=== PATIENT | male | born 1975 | race Hispanic/Latino ===

== ENCOUNTER 2017-10-23 17:36 | Emergency (ER) | payer BC ==
[2017-10-23] MEDS ORDERED: NACL 0.9% 1000 ML 1,000 ML IV ONE ×2 (18:22)
[2017-10-23] MEDS ORDERED: NACL 0.9% 1000 ML 2,000 ML ONE (18:22)
[2017-10-23] MEDS ORDERED: ZOFRAN IV ONE (18:24)
--- NOTE | 2017-10-23 18:37 | Emergency Department Report ---
HPI - General Time Seen by Provider: 10/23/17 18:16 - HPI HPI: Room 21 The patient is a 42-year-old male presenting with a chief complaint of altered mental status. Per nursing there is no EMS run sheet were reviewed. Nursing states that the patient was found "like this" (decreased responsiveness) at his java core developer's office. There is a half empty bottle of vodka that accompanied the patient. The patient has a bottle of Abilify that was filled today but only missing two 5 mg pills. Patient opens his eyes and makes eye contact with tactile stimuli but does not speak. Patient immediately goes back to sleep Location: Mental status Duration: Unknown Quality: Decreased responsiveness Severity: Moderate Modifying factors: [see above] Context: [see above] Mode of transportation: [not driving] ED Past Medical Hx - Family History Family history: no significant - Social History Smoking Status: Unknown if ever smoked Substance Use Type: Alcohol - Medications Home Medications: Home Medications Medication Instructions Recorded Confirmed Last Taken Type ARIPiprazole [Abilify TAB] 5 mg PO DAILY 10/23/17 10/23/17 Unknown History Gabapentin [Neurontin] 300 mg PO Q8HR 10/23/17 10/23/17 Unknown History Ibuprofen [Motrin 800 MG tab] 800 mg PO Q8HR PRN #20 tablet 10/23/17 Unknown Rx hydrOXYzine PAMOATE [Vistaril] 50 mg PO Q6HR PRN #20 capsule 10/23/17 Unknown Rx ED Review of Systems ROS: Stated complaint: ETOH Other details as noted in HPI Comment: Unobtainable due to pts medical conditions Physical Exam - Physical Exam Physical Exam: GENERAL: The patient is well-developed well-nourished male lying on stretcher not appearing to be in acute distress. Patient has decreased responsiveness but makes eye contact with tactile stimuli HEENT: Normocephalic. Atraumatic. Extraocular motions are intact. Patient has moist mucous membranes. Pupils 3-2 mm bilaterally NECK: Supple. Trachea midline CHEST/LUNGS: Clear to auscultation. There is no respiratory distress noted. HEART/CARDIOVASCULAR: Regular. There is no tachycardia. There is no gallop rub or murmur. ABDOMEN: Abdomen is soft, nontender. Patient has normal bowel sounds. There is no abdominal distention. SKIN: There is no rash. There is no edema. There is no diaphoresis. NEURO: The patient exhibits decreased responsiveness. With sternal rub the patient opens his eyes and makes eye contact but does not respond verbally. Patient then immediately goes back to sleep with both arms folded behind his head. MUSCULOSKELETAL: There is no evidence of acute injury. ED Course - Reevaluation(s) Reevaluation #1: 10/23/17 20:49 Patient more awake at this point and response to verbal stimuli. Patient states he does not recall how he got to the emergency department. The patient was reminded he was sent from an ip attorney's office and again the patient is amnestic to the event. The patient now complains of upper back pain with pleurisy. At this time I will order a CT angiogram of the chest to rule out PE 10/23/17 22:58 Discussed with patient the need to follow-up with a medical field representative for further evaluation of his pulmonary nodules. I explained that this may be sales representative advertising of cancer and should not be ignored. Patient verbalized understanding ED Medical Decision Making - Lab Data Result diagrams: 10/23/17 18:31 10/23/17 18:31 Laboratory Tests 10/23/17 10/23/17 10/23/17 18:31 18:31 18:31 WBC 7.6 RBC 4.66 Hgb 13.7 Hct 40.8 MCV 88 MCH 29 MCHC 34 RDW 13.1 L Plt Count 235 Lymph % (Auto) 17.9 [place] % (Auto) 8.3 H Eos % (Auto) 5.0 H Baso % (Auto) 0.6 Lymph # 1.4 [place] # 0.6 Eos # 0.4 Baso # 0.0 Seg Neutrophils % 68.2 Seg Neutrophils # 5.2 PT 13.2 INR 0.95 APTT 27.9 Sodium 141 Potassium 3.6 Chloride 102.2 Carbon Dioxide 23 Anion Gap 19 BUN 6 L Creatinine 0.8 Estimated GFR > 60 BUN/Creatinine Ratio 8 Glucose 105 H Calcium 8.0 L Total Bilirubin 0.30 AST 74 H ALT 62 H Alkaline Phosphatase 106 Ammonia Total Creatine Kinase 53 L CK-MB (CK-2) < 1.0 CK-MB (CK-2) Rel Index 1.8 Troponin T < 0.010 Total Protein 6.8 Albumin 3.4 L Albumin/Globulin Ratio 1.0 Urine Color Urine Turbidity Urine pH Ur Specific [place] Urine Protein Urine Glucose (UA) Urine Ketones Urine Blood Urine Nitrite Urine Bilirubin Urine Urobilinogen Ur Leukocyte Esterase Urine WBC (Auto) Urine RBC (Auto) Salicylates Urine Opiates Screen Urine Methadone Screen Acetaminophen Ur Barbiturates Screen Ur Phencyclidine Scrn Ur Amphetamines Screen U Benzodiazepines Scrn Urine Cocaine Screen U Marijuana (THC) Screen Drugs of Abuse Note Plasma/Serum Alcohol 10/23/17 10/23/17 10/23/17 18:31 18:31 18:39 WBC RBC Hgb Hct MCV MCH MCHC RDW Plt Count Lymph % (Auto) [place] % (Auto) Eos % (Auto) Baso % (Auto) Lymph # [place] # Eos # Baso # Seg Neutrophils % Seg Neutrophils # PT INR APTT Sodium Potassium Chloride Carbon Dioxide Anion Gap BUN Creatinine Estimated GFR BUN/Creatinine Ratio Glucose Calcium Total Bilirubin AST ALT Alkaline Phosphatase Ammonia 56.0 Total Creatine Kinase CK-MB (CK-2) CK-MB (CK-2) Rel Index Troponin T Total Protein Albumin Albumin/Globulin Ratio Urine Color Urine Turbidity Urine pH Ur Specific [place] Urine Protein Urine Glucose (UA) Urine Ketones Urine Blood Urine Nitrite Urine Bilirubin Urine Urobilinogen Ur Leukocyte Esterase Urine WBC (Auto) Urine RBC (Auto) Salicylates < 0.3 L Urine Opiates Screen Urine Methadone Screen Acetaminophen Ur Barbiturates Screen Ur Phencyclidine Scrn Ur Amphetamines Screen U Benzodiazepines Scrn Urine Cocaine Screen U Marijuana (THC) Screen Drugs of Abuse Note Plasma/Serum Alcohol 0.32 H 10/23/17 10/23/17 10/23/17 18:39 18:56 18:56 WBC RBC Hgb Hct MCV MCH MCHC RDW Plt Count Lymph % (Auto) [place] % (Auto) Eos % (Auto) Baso % (Auto) Lymph # [place] # Eos # Baso # Seg Neutrophils % Seg Neutrophils # PT INR APTT Sodium Potassium Chloride Carbon Dioxide Anion Gap BUN Creatinine Estimated GFR BUN/Creatinine Ratio Glucose Calcium Total Bilirubin AST ALT Alkaline Phosphatase Ammonia Total Creatine Kinase CK-MB (CK-2) CK-MB (CK-2) Rel Index Troponin T Total Protein Albumin Albumin/Globulin Ratio Urine Color Straw Urine Turbidity Clear Urine pH 6.0 Ur Specific [place] 1.003 Urine Protein <15 mg/dl Urine Glucose (UA) Neg Urine Ketones Neg Urine Blood Neg Urine Nitrite Neg Urine Bilirubin Neg Urine Urobilinogen < 2.0 Ur Leukocyte Esterase Neg Urine WBC (Auto) 0.0 Urine RBC (Auto) < 1.0 Salicylates Urine Opiates Screen Presumptive negative Urine Methadone Screen Presumptive negative Acetaminophen < 15.0 Ur Barbiturates Screen Presumptive negative Ur Phencyclidine Scrn Presumptive negative Ur Amphetamines Screen Presumptive negative U Benzodiazepines Scrn Presumptive negative Urine Cocaine Screen Presumptive negative U Marijuana (THC) Screen Presumptive negative Drugs of Abuse Note Disclamer Plasma/Serum Alcohol - EKG Data -: EKG Interpreted by Ks EKG shows normal: sinus rhythm Rate: normal - EKG Data When compared to previous EKG there are: previous EKG unavailable Interpretation: other (right bundle-branch block. No ischemic changes seen) - Radiology Data Radiology results: report reviewed (CT head, CT chest), image reviewed (CT head , CT chest) FINAL REPORT EXAM: CT HEAD/BRAIN WO CON HISTORY: altered mental status TECHNIQUE: CT head without contrast PRIORS: None. FINDINGS: No acute intra-axial or extra-axial hemorrhage is identified. There is no evidence of midline shift or mass effect. The ventricles and sulci are within normal limits. Wilkerson-white matter differentiation is intact. No acute parenchymal abnormalities seen. Bony calvarium is grossly intact. Visualized portions of the mastoids and paranasal sinuses are unremarkable. IMPRESSION: Negative CT head Transcribed By: KIRA Dictated By: ELISA HANCOCK MD Electronically Authenticated By: ELISA HANCOCK MD Signed Date/Time: 10/23/171514 DD/ 14 TD/TT: 10/23/171514 FINAL REPORT EXAM: CT ANGIO CHEST HISTORY: pleuritic upper back pain TECHNIQUE: CT chest CT angiogram with intravenous contrast PRIORS: None. FINDINGS: There is no evidence for filling defect within central pulmonary vasculature to suggest the presence of acute pulmonary embolus Few mildly prominent AP window lymph nodes are present measuring up to 1.2 x 0.75 centimeters. There prominent paratracheal nodes. Within the right upper lobe there is a stellate mass measuring 2.5 x 3.5 centimeters (axial slice 61) additionally within the right upper lobe there is a 0.79 x 0.92 centimeter nodule. Several additional normal tiny nodules are present further lung apex. Mass measuring within the posterior left upper lobe there is an irregular density measuring 1.8 by 2.0 (axial slice 50) additional smaller nodule is also noted within the left upper lobe 0.5 centimeters (axial slice 44). There are several small nodules noted within the right middle and right lower lobes. There is no acute abnormality identified in the visualized portion of the upper abdomen IMPRESSION: Multiple pulmonary nodules with upper lobe predominance. These may be inflammatory/infectious in nature however underlying neoplasm cannot be excluded. The the larger lesion in the upper lobe appears amenable to percutaneous biopsy. Alternatively if close interval follow-up CT could be performed within 3 months or sooner as clinically indicated Mild prominence of mediastinal lymph nodes No CT evidence for acute pulmonary embolus Transcribed By: KIRA Dictated By: ELISA HANCOCK MD Electronically Authenticated By: ELISA HANCOCK MD Signed Date/Time: 10/23/171845 DD/ 45 TD/TT: 10/23/171845 - Differential Diagnosis alcohol intoxication, overdose, ICH Critical care attestation.: If time is entered above; I have spent that time in minutes in the direct care of this critically ill patient, excluding procedure time. ED Disposition Clinical Impression: Altered mental status, Alcohol intoxication, Elevated LFTs, Pulmonary nodules, Mediastinal lymphadenopathy Disposition: - TO HOME OR SELFCARE Is pt being admited?: No Does the pt Need Aspirin: No Condition: Stable Instructions: Alcohol Intoxication (ED), Pulmonary Nodules (ED) Additional Instructions: Return to the emergency department immediately should you develop worsening symptoms, fever, inability to tolerate food or liquid or any other concerns. Prescriptions: hydrOXYzine PAMOATE [Vistaril] 50 mg PO Q6HR PRN #20 capsule PRN Reason: Anxiety Ibuprofen [Motrin 800 MG tab] 800 mg PO Q8HR PRN #20 tablet PRN Reason: Pain Referrals: ASHLYN KNOTT MD [Primary Care Provider] - 3-5 Days [facility] [Outside] - 3-5 Days ANTHONY ARORA MD [Staff Physician] - 3-5 Days (Dr. Curt Wright is a medical field representative. It is very important that you follow-up with him for further evaluation of your pulmonary nodules. Failure to do so may lead to undiagnosed lung cancer and ) Time of Disposition: 22:45 (discharge to family or one alcohol < 0.08)
[2017-10-23 18:55] LABS: Basophils % (Auto) 0.6 % (0.0-1.8); Eosinophils # (Auto) 0.4 K/mm3 (0.0-0.4); Hematocrit 40.8 % (35.5-45.6); Hemoglobin 13.7 gm/dl (11.8-15.2); Lymphocytes # (Auto) 1.4 K/mm3 (1.2-5.4); Lymphocytes % (Auto) 17.9 % (13.4-35.0); Mean Corpuscular HGB Conc 34 % (32-34); Mean Corpuscular Hemoglobin 29 pg (28-32); Mean Corpuscular Volume 88 fl (84-94); Monocytes # (Auto) 0.6 K/mm3 (0.0-0.8); Monocytes % (Auto) 8.3 % (0.0-7.3); Platelet Count 235 K/mm3 (140-440); Red Blood Count 4.66 M/mm3 (3.65-5.03); Red Cell Distribution Width 13.1 % (13.2-15.2)
[2017-10-23 19:05] LABS: INR 0.95 (0.87-1.13)
[2017-10-23 19:09] LABS: Alanine Aminotransferase 62 units/L (7-56); Albumin 3.4 g/dL (3.9-5); BUN/Creatinine Ratio 8; Blood Urea Nitrogen 6 mg/dL (9-20); Hemolysis Index 3
[2017-10-23 19:10] LABS: Creatine Kinase MB < 1.0 ng/mL (0.0-4.0); Partial Thromboplastin Time 27.9 Sec. (24.2-36.6)
--- NOTE | 2017-10-23 19:19 | Cat Scan Report ---
FINAL REPORT EXAM: CT HEAD/BRAIN WO CON HISTORY: altered mental status TECHNIQUE: CT head without contrast PRIORS: None. FINDINGS: No acute intra-axial or extra-axial hemorrhage is identified. There is no evidence of midline shift or mass effect. The ventricles and sulci are within normal limits. Wilkerson-white matter differentiation is intact. No acute parenchymal abnormalities seen. Bony calvarium is grossly intact. Visualized portions of the mastoids and paranasal sinuses are unremarkable. IMPRESSION: Negative CT head
[2017-10-23 19:35] LABS: Bilirubin,Urine NEG (Negative); Blood,Urine NEG (Negative); Color,Urine Straw (Yellow); Nitrite,Urine NEG (Negative); Protein,Urine <15 mg/dL mg/dL (Negative); RBC,Urine < 1.0 /HPF (0.0-6.0); Urobilinogen,Urine < 2.0 mg/dL (<2.0)
[2017-10-23 19:42] LABS: Amphetamine Screen,Urine PRESUMPTIVE NEGATIVE; Benzodiazepines Screen,Urine PRESUMPTIVE NEGATIVE; Cannabinoid Screen,Urine PRESUMPTIVE NEGATIVE; Cocaine Screen,Urine PRESUMPTIVE NEGATIVE; Methadone Screen,Urine PRESUMPTIVE NEGATIVE; Opiate Screen,Urine PRESUMPTIVE NEGATIVE
[2017-10-23] MEDS ORDERED: VITAMIN B-1 100 MG, FOLVITE 1 MG, INFUVITE 10 ML, MAGNESIUM SULFATE 2 GM in NACL 0.9% 1... IV ONE (20:19)
--- NOTE | 2017-10-23 22:50 | Cat Scan Report ---
FINAL REPORT EXAM: CT ANGIO CHEST HISTORY: pleuritic upper back pain TECHNIQUE: CT chest CT angiogram with intravenous contrast PRIORS: None. FINDINGS: There is no evidence for filling defect within central pulmonary vasculature to suggest the presence of acute pulmonary embolus Few mildly prominent AP window lymph nodes are present measuring up to 1.2 x 0.75 centimeters. There prominent paratracheal nodes. Within the right upper lobe there is a stellate mass measuring 2.5 x 3.5 centimeters (axial slice 61) additionally within the right upper lobe there is a 0.79 x 0.92 centimeter nodule. Several additional normal tiny nodules are present further lung apex. Mass measuring within the posterior left upper lobe there is an irregular density measuring 1.8 by 2.0 (axial slice 50) additional smaller nodule is also noted within the left upper lobe 0.5 centimeters (axial slice 44). There are several small nodules noted within the right middle and right lower lobes. There is no acute abnormality identified in the visualized portion of the upper abdomen IMPRESSION: Multiple pulmonary nodules with upper lobe predominance. These may be inflammatory/infectious in nature however underlying neoplasm cannot be excluded. The the larger lesion in the upper lobe appears amenable to percutaneous biopsy. Alternatively if close interval follow-up CT could be performed within 3 months or sooner as clinically indicated Mild prominence of mediastinal lymph nodes No CT evidence for acute pulmonary embolus
[2017-10-24 10:05] VITALS: BP 126/78
== END 2017-10-24 10:36 | disposition home or self-care (01) ==
LOC: ED 17:36
DX: F10.129 Alcohol abuse with intoxication, unspecified (principal); R41.82 Altered mental status, unspecified; R94.5 Abnormal results of liver function studies; R59.1 Generalized enlarged lymph nodes
CPT/HCPCS: 36415; 51702; 70450; 71275; 80053; 80307; 81001; 82140; 82550; 82553; 84484; 85025; 85610; 85730; 93005; 93010; 96361; 96365; 96366; 96375; 99284; G0480; J2405; J3411; J3475; J7030; Q9967; 80320

== ENCOUNTER 2017-10-25 11:21 | Emergency (ER) | payer BC ==
[2017-10-25 12:06] LABS: Basophils % (Auto) 0.7 % (0.0-1.8); Eosinophils # (Auto) 0.4 K/mm3 (0.0-0.4); Eosinophils % (Auto) 5.5 % (0.0-4.3); Hematocrit 42.3 % (35.5-45.6); Hemoglobin 14.1 gm/dl (11.8-15.2); Lymphocytes # (Auto) 1.8 K/mm3 (1.2-5.4); Lymphocytes % (Auto) 26.5 % (13.4-35.0); Mean Corpuscular HGB Conc 33 % (32-34); Mean Corpuscular Hemoglobin 29 pg (28-32); Mean Corpuscular Volume 88 fl (84-94); Monocytes # (Auto) 0.5 K/mm3 (0.0-0.8); Monocytes % (Auto) 7.5 % (0.0-7.3); Platelet Count 257 K/mm3 (140-440); Red Blood Count 4.82 M/mm3 (3.65-5.03); Red Cell Distribution Width 13.5 % (13.2-15.2)
[2017-10-25 12:13] LABS: BUN/Creatinine Ratio 7; Blood Urea Nitrogen 5 mg/dL (9-20); Calcium 8.4 mg/dL (8.4-10.2); Hemolysis Index 8
--- NOTE | 2017-10-25 12:15 | Emergency Department Report ---
ED Alcohol HPI - General Chief Complaint: Alcohol Stated Complaint: OVERDOSE Time Seen by Provider: 10/25/17 12:06 Source: old records reviewed Mode of arrival: Ambulatory Limitations: Physical Limitation - History of Present Illness MD Complaint: alcohol intoxication Time Since Last Drink: 1 -: days(s) Previous Visits for Alcohol Intoxication?: Yes Recent Trauma: No (denies) Associated Symptoms: denies other symptoms. denies: suicidality - Related Data Home Medications Medication Instructions Recorded Confirmed Last Taken ARIPiprazole [Abilify TAB] 5 mg PO DAILY 10/23/17 10/23/17 Unknown Gabapentin [Neurontin] 300 mg PO Q8HR 10/23/17 10/23/17 Unknown Previous Rx's Medication Instructions Recorded Last Taken Type Ibuprofen [Motrin 800 MG tab] 800 mg PO Q8HR PRN #20 tablet 10/23/17 Unknown Rx hydrOXYzine PAMOATE [Vistaril] 50 mg PO Q6HR PRN #20 capsule 10/23/17 Unknown Rx Allergies Allergy/AdvReac Type Severity Reaction Status Date / Time No Known Allergies Allergy Unverified 10/25/17 17:29 ED Review of Systems ROS: Stated complaint: OVERDOSE Other details as noted in HPI Eyes: denies: eye discharge Respiratory: denies: SOB with exertion, SOB at rest Cardiovascular: denies: chest pain ED Past Medical Hx - Social History Smoking Status: Current Every Day Smoker - Medications Home Medications: Home Medications Medication Instructions Recorded Confirmed Last Taken Type ARIPiprazole [Abilify TAB] 5 mg PO DAILY 10/23/17 10/23/17 Unknown History Gabapentin [Neurontin] 300 mg PO Q8HR 10/23/17 10/23/17 Unknown History Ibuprofen [Motrin 800 MG tab] 800 mg PO Q8HR PRN #20 tablet 10/23/17 Unknown Rx hydrOXYzine PAMOATE [Vistaril] 50 mg PO Q6HR PRN #20 capsule 10/23/17 Unknown Rx ED Physical Exam - General Limitations: Physical Limitation - Head Head exam: Present: atraumatic - Eye Eye exam: Present: normal appearance, PERRL, EOMI - ENT ENT exam: Present: mucous membranes dry - Neck Neck exam: Present: normal inspection. Absent: tenderness - Respiratory Respiratory exam: Present: normal lung sounds bilaterally - Cardiovascular Cardiovascular Exam: Present: regular rate, normal rhythm, normal heart sounds - GI/Abdominal GI/Abdominal exam: Present: soft. Absent: distended, tenderness, guarding, rebound - Extremities Exam Extremities exam: Present: normal inspection, full ROM. Absent: tenderness - Neurological Exam Neurological exam: Present: alert, oriented X3, CN II-XII intact - Psychiatric Psychiatric exam: Absent: homicidal ideation (pt was asked specifically and he denied suicidal and homocidal ideation), suicidal ideation - Skin Skin exam: Present: warm, dry, intact. Absent: cyanosis, diaphoretic, erythema ED Course Vital Signs 10/25/17 10/25/17 10/25/17 11:28 11:53 11:57 Temperature 98.5 F 98.6 F Pulse Rate 84 76 Respiratory 18 14 Rate Blood Pressure 108/60 112/69 Blood Pressure [Right] O2 Sat by Pulse 95 97 Oximetry 10/25/17 10/25/17 10/25/17 13:44 15:16 17:05 Temperature Pulse Rate 73 72 74 Respiratory 18 18 18 Rate Blood Pressure Blood Pressure 112/72 109/69 104/78 [Right] O2 Sat by Pulse 96 98 99 Oximetry ED Medical Decision Making - Lab Data Result diagrams: 10/25/17 11:43 10/25/17 11:43 - Medical Decision Making 1700 Pt is ambulatory, awake, alert, oriented; pt feels ready to go.Pt denies suicidal or homicidal ideation. pt stable for discharge. Critical care attestation.: If time is entered above; I have spent that time in minutes in the direct care of this critically ill patient, excluding procedure time. ED Disposition Clinical Impression: Acute alcohol intoxication Condition: Stable Referrals: PRIMARY CARE, [Primary Care Provider] - 3-5 Days
[2017-10-25 12:27] LABS: Alanine Aminotransferase 74 units/L (7-56); Albumin 3.8 g/dL (3.9-5)
[2017-10-25 12:33] LABS: Bilirubin,Urine NEG (Negative); Blood,Urine NEG (Negative); Color,Urine Straw (Yellow); Nitrite,Urine NEG (Negative); Protein,Urine <15 mg/dL mg/dL (Negative); Urobilinogen,Urine < 2.0 mg/dL (<2.0); WBC,Urine < 1.0 /HPF (0.0-6.0)
[2017-10-25 12:44] LABS: Bilirubin,Direct < 0.2 mg/dL (0-0.2)
[2017-10-25 13:00] LABS: Amphetamine Screen,Urine PRESUMPTIVE NEGATIVE; Benzodiazepines Screen,Urine PRESUMPTIVE NEGATIVE; Cannabinoid Screen,Urine PRESUMPTIVE NEGATIVE; Cocaine Screen,Urine PRESUMPTIVE NEGATIVE; Methadone Screen,Urine PRESUMPTIVE NEGATIVE; Opiate Screen,Urine PRESUMPTIVE NEGATIVE
[2017-10-25] MEDS ORDERED: 1: FOLVITE 1 MG, INFUVITE 10 ML, VITAMIN B-1 100 MG in NACL 0.9% 1000 ML 988.8 ML 2: NA IV SCH (13:00)
[2017-10-25] MEDS ORDERED: NACL 0.9% 1000 ML 1,000 ML IV SCH (13:00)
[2017-10-25] MEDS ORDERED: VITAMIN B-1 100 MG, FOLVITE 1 MG, INFUVITE 10 ML in NACL 0.9% 1000 ML 1,000 ML IV SCH (14:00)
[2017-10-25] MEDS ORDERED: ATIVAN ONE (17:25)
[2017-10-25] MEDS ORDERED: ATIVAN IV ONE (17:28)
[2017-10-25 17:45] VITALS: BP 104/78
== END 2017-10-25 20:00 | disposition home or self-care (01) ==
LOC: ED 11:21
DX: F10.129 Alcohol abuse with intoxication, unspecified (principal); F17.200 Nicotine dependence, unspecified, uncomplicated; Z88.2 Allergy status to sulfonamides; Z88.5 Allergy status to narcotic agent
CPT/HCPCS: 36415; 51702; 80048; 80074; 80307; 81001; 85025; 96361; 96365; 96366; 96375; 99283; G0480; J2060; J3411; J7030; 80320